=== PATIENT | female | born 1940 | race Hispanic/Latino ===

== ENCOUNTER 2017-11-22 02:08 | Inpatient (IN) | payer MEDICARE ==
[~2017-11-22] VITALS: Ht 154.9 cm; Wt 82.3 kg
[2017-11-23] VITALS (10 sets, daily range): BP systolic 117–155; BP diastolic 50–68
[2017-11-23] MEDS ORDERED: SERT50TA12 PO (03:20)
[2017-11-23] MEDS ORDERED: LOSA50TA37 PO (03:20)
[2017-11-23] MEDS ORDERED: SIMV40TA5 PO (03:20)
[2017-11-23] MEDS ORDERED: ACET-66 PO (03:20)
[2017-11-23] MEDS ORDERED: ASPI-555 PO (03:20)
[2017-11-23] MEDS ORDERED: METO1TAB42 PO (03:20)
[2017-11-23] MEDS ORDERED: FOLI0.4T2 PO (03:20)
[2017-11-23] MEDS ORDERED: METO-391 PO (03:20)
[2017-11-23] MEDS ORDERED: DEXL60CA3 PO (03:20)
[2017-11-23] MEDS ORDERED: SOLI10TA PO (03:20)
[2017-11-23] MEDS ORDERED: HUM100IN SQ (03:20)
[2017-11-23 04:59] LABS: HEMATOCRIT 37.2 % (36-48); MEAN CORPUSCULAR HEMOGLOBIN 29.4 pg (27.0-33.0); MEAN CORPUSCULAR VOLUME 86.4 fL (79-99); PLATELET COUNT (AUTO) 178 K/uL (130-400); RED BLOOD CELL COUNT(AUTO) 4.31 MIL/uL (4.00-5.50); RED CELL DISTRIBUTION WIDTH 13.7 % (11.0-15.5); WHITE BLOOD COUNT (AUTO) 8.2 K/uL (4.8-10.8)
[2017-11-23 05:11] LABS: CARBON DIOXIDE 26 mmol/L (21-32); CHLORIDE 106 mmol/L (101-111); CREATININE 1.1 mg/dL (0.5-1.5); GLOMERULAR FILTR. RATE CALC 51 mL/min (>60); GLUCOSE,RANDOM 169 mg/dL (70-105); PARTIAL THROMBOPLASTIN TIME 31.2 SEC (26.3-35.5); PROTHROMBIN TIME 10.5 SEC (9.6-11.6); SODIUM SERUM 139 mmol/L (136-145); UREA NITROGEN, BLOOD 20 mg/dL (7-18)
[2017-11-23 05:12] LABS: EOSINOPHILS % (MANUAL) 3 % (1-6); LYMPHOCYTES % (MANUAL) 18 % (22-44); MAN.DIFF COMMENT-IMPRESSION MANUAL DIFFERENTIAL; MONOCYTES % (MANUAL) 8 % (2-9); PLATELET MORPHOLOGY COMMENT ADEQUATE; SEGMENTED NEUTROPHILS % 71 % (40-70)
[2017-11-23 05:27] LABS: ALANINE AMINOTRANSFERASE 30 U/L (12-78); ASPARTATE AMINOTRANSFERASE 29 U/L (10-37); BILIRUBIN,TOTAL 0.3 mg/dL (0.2-1.0); CREATINE KINASE MB 0.7 ng/mL (0.5-3.6); CREATINE KINASE, TOTAL 73 U/L (21-232); MYOGLOBIN 55 ng/mL (10-92); TOTAL PROTEIN, SERUM 6.6 g/dL (6.0-8.3); TROPONIN I < 0.04 ng/mL (0.00-0.06)
[2017-11-23] MEDS ORDERED: HEPARIN SODIUM 1000UNIT/ML 10ML VIAL ONE (11:09)
[2017-11-23] MEDS ORDERED: IOPAMIDOL-370 100 ML VIAL IV ONE (11:10)
[2017-11-23] MEDS ORDERED: ISOVUE-370 50ML VIAL IV ONE (11:10)
[2017-11-23] MEDS ORDERED: NITROGLYCERIN 5 MG/ML 10 ML VIAL IV ONE (11:10)
[2017-11-23] MEDS ORDERED: LIDOCAINE HCL 2% 20ML ONE (11:10)
[2017-11-23] MEDS ORDERED: MIDAZOLAM HCL 1 MG/ML 2ML VIAL ONE (11:34)
[2017-11-23] MEDS ORDERED: FENTANYL CITRATE PF 50 MCG/1 ML 2ML VIAL ONE (11:34)
[2017-11-23] MEDS ORDERED: SODIUM CHLORIDE 0.9% 1000ML 1,000 ML IV SCH (11:59)
[2017-11-23] MEDS ORDERED: METOPROLOL TARTRATE 1 MG/ML 5ML VIAL IV PRN (12:00)
[2017-11-23] MEDS ORDERED: HYDRALAZINE HCL 20 MG/ML VIAL IV PRN (12:00)
== END 2017-11-23 18:45 | disposition home or self-care (01) | DRG 287 ==
LOC: 2DH 11-23 02:26
PROVIDERS: ADMIT Family Medicine; ATTEND Family Medicine
PROC: 4A023N7 Measurement of Cardiac Sampling and Pressure, Left Heart, Percutaneous Approach (ICD-10-PCS; principal; 2017-11-23)
PROC: B2111ZZ Fluoroscopy of Multiple Coronary Arteries using Low Osmolar Contrast (ICD-10-PCS; 2017-11-23)
PROC: B2151ZZ Fluoroscopy of Left Heart using Low Osmolar Contrast (ICD-10-PCS; 2017-11-23)
DX: R07.9 Chest pain, unspecified (principal); E78.5 Hyperlipidemia, unspecified; R94.39 Abnormal result of other cardiovascular function study
CPT/HCPCS: 36415; 71045; 80053; 82550; 82553; 83874; 84484; 85025; 85610; 85730; 93458; 99152; 99153; C1760; C1894; J1644; J2250; J3010; J3490; Q9967